=== PATIENT | male | born 1975 | race Caucasian/White ===

== ENCOUNTER 2018-10-11 14:17 | Inpatient (IN) | payer MEDICAID ==
[2018-10-11 15:16] LABS: ADD MAN DIFF? NO
[2018-10-11] MEDS: ONDANSETRON 4 MG INJ IV (15:16)
[2018-10-11] MEDS: HYDROmorphONE 1 MG/ML SYG IV (15:16)
[2018-10-11 15:35] LABS: ALANINE AMINOTRANSFERASE 47 IU/L (13-69); ALBUMIN/GLOBULIN RATIO 0.74; ALKALINE PHOSPHATASE 244 IU/L (42-121); ANION GAP 27 (5-13); ASPARTATE AMINO TRANSFERASE 69 IU/L (15-46); BILIRUBIN,INDIRECT 0.5 mg/dl (0-1.1); BILIRUBIN,TOTAL 0.5 mg/dl (0.2-1.3); BLOOD UREA NITROGEN 8 mg/dl (7-20); CALCIUM 6.7 mg/dl (8.4-10.2); CHLORIDE 94 mmol/L (97-110); CREATININE 0.84 mg/dl (0.61-1.24); Estimated GFR > 60 mL/min (>60); POTASSIUM 5.3 mmol/L (3.5-5.1); SODIUM 130 mmol/L (135-144); TOTAL PROTEIN 9.4 g/dl (6.1-8.1)
[2018-10-11 15:41] LABS: CARBON DIOXIDE 9 mmol/L (21-31); GLUCOSE 469 mg/dl (70-220)
[2018-10-11] MEDS ORDERED: DEXTROSE 10%/0.45% NACL 1,000 ML IV (15:43)
[2018-10-11] MEDS ORDERED: D10/0.45% NACL + KCL 40 MEQ 1,000 ML IV (15:43)
[2018-10-11] MEDS ORDERED: NS + KCL 40 MEQ 1,000 ML IV (15:43)
[2018-10-11 15:53] LABS: LIPASE 8556 U/L (23-300)
[2018-10-11] MEDS ORDERED: LACTATED RINGER'S 800 ML IV (16:00)
[2018-10-11] MEDS ORDERED: DEXTROSE 50% 50 ML SYRINGE IV ×2 (16:00)
[2018-10-11] MEDS ORDERED: INSULIN REGULAR, HUMAN 100 UNIT in SOD CHLORIDE 0.9% 100 ML IV (16:00)
[2018-10-11] MEDS: IOHEXOL 300MG/ML 150 ML BTL (16:05)
[2018-10-11] MEDS: SOD CHLORIDE 0.9% 100 ML (16:05)
[2018-10-11 16:19] LABS: ABNORMAL IP MESSAGE 1; BASOPHIL # 0.1 10^3/ul (0.0-0.1); BASOPHILS % 0.8 % (0.0-2.0); EOSINOPHILS % 0.1 % (0.0-7.0); HEMATOCRIT 62.8 % (42.0-52.0); HEMOGLOBIN 23.2 g/dl (14.0-18.0); LYMPHOCYTES # 0.4 10^3/ul (0.8-2.9); LYMPHOCYTES % 5.2 % (15.0-51.0); MEAN CORPUSCULAR HEMOGLOBIN 31.7 pg (29.0-33.0); MEAN CORPUSCULAR HGB CONC 36.9 g/dl (32.0-37.0); MEAN CORPUSCULAR VOLUME 85.7 fl (82.0-101.0); MONOCYTE # 0.5 10^3/ul (0.3-0.9); MONOCYTES % 5.7 % (0.0-11.0); NEUTROPHILS % 87.8 % (39.0-77.0); PLATELET COUNT 84 10^3/UL (140-415); POSITIVE DIFF @See below; RED BLOOD COUNT 7.33 10^6/ul (4.70-6.10); RED CELL DISTRIBUTION WIDTH 13.1 % (11.5-14.5)
[2018-10-11 16:19] LABS: WHITE BLOOD COUNT 7.9 10^3/ul (4.8-10.8)
[2018-10-11 16:23] LABS: MODE ROOM AIR; MetHgb Venous 0.2 %; PATH REVIEW? YES; Sample Type Blood venous; Site VENOUS LINE; Venous COHb 0.6 %; Venous Fraction OxyHgb 83.1 %; Venous Oxygen Sat 83.8 mmHG (55.0-75.0); Venous Total Hemglobin 15.7 g/dl
[2018-10-11] MEDS: SOD CHLORIDE 0.9% 1,000 ML IV (16:29)
[2018-10-11] MEDS: LACTATED RINGER'S 800 ML IV (16:30)
[2018-10-11] MEDS: INSULIN REGULAR, HUMAN 100 UNIT in SOD CHLORIDE 0.9% 100 ML IV (16:43)
[2018-10-11 16:53] LABS: MEAN PLATELET VOLUME 13.9 fl (7.4-10.4)
[2018-10-11 16:59] LABS: ADD UMIC YES; UR ASCORBIC ACID NEGATIVE (NEGATIVE); UR BILIRUBIN (Dip) NEGATIVE (NEGATIVE); UR BLOOD (Dip) 1+ mg/dL (NEGATIVE); UR CLARITY CLEAR (CLEAR); UR COLOR YELLOW (YELLOW); UR GLUCOSE (Dip) 3+ mg/dL (NEGATIVE); UR KETONES (Dip) 2+ mg/dL (NEGATIVE); UR LEUKOCYTE ESTERASE (Dip) NEGATIVE Leu/ul (NEGATIVE); UR NITRITE (Dip) NEGATIVE (NEGATIVE); UR RBC 3 /HPF (0-5); UR SPECIFIC GRAVITY (Dip) 1.033 (1.003-1.030); UR TOTAL PROTEIN (Dip) 2+ mg/dl (NEGATIVE); UR UROBILINOGEN (Dip) NEGATIVE (NEGATIVE); UR WBC 8 /HPF (0-5)
[2018-10-11 17:07] LABS: ANION GAP 25 (5-13); BLOOD UREA NITROGEN 8 mg/dl (7-20); CHLORIDE 96 mmol/L (97-110); CREATININE 0.86 mg/dl (0.61-1.24); Estimated GFR > 60 mL/min (>60); MAGNESIUM 1.3 mg/dl (1.7-2.5); PHOSPHORUS 3.8 mg/dl (2.5-4.9); POTASSIUM 4.7 mmol/L (3.5-5.1); SODIUM 128 mmol/L (135-144)
[2018-10-11 17:14] LABS: CARBON DIOXIDE 7 mmol/L (21-31); GLUCOSE 452 mg/dl (70-220)
[2018-10-11 17:19] LABS: CALCIUM 5.9 mg/dl (8.4-10.2)
[2018-10-11] MEDS: NS + KCL 30 MEQ 1,000 ML IV ×2 (17:53→21:53)
[2018-10-11 18:25] LABS: MODE NASAL CANNULA; MetHgb Venous 0.2 %; Sample Type Blood venous; Site VENOUS LINE; Venous COHb 0.4 %; Venous Fraction OxyHgb 84.3 %; Venous Oxygen Sat 84.8 mmHG (55.0-75.0); Venous Total Hemglobin 16.1 g/dl
[2018-10-11] MEDS: HYDROmorphONE 2 MG/ML SYG IV (18:31)
[2018-10-11 18:48] LABS: ANION GAP 22 (5-13); BLOOD UREA NITROGEN 8 mg/dl (7-20); CHLORIDE 102 mmol/L (97-110); Estimated GFR > 60 mL/min (>60); GLUCOSE 358 mg/dl (70-220); MAGNESIUM 1.3 mg/dl (1.7-2.5); PHOSPHORUS 2.7 mg/dl (2.5-4.9); POTASSIUM 4.8 mmol/L (3.5-5.1); SODIUM 131 mmol/L (135-144)
[2018-10-11 18:57] LABS: CALCIUM 5.9 mg/dl (8.4-10.2); CARBON DIOXIDE 7 mmol/L (21-31)
[2018-10-11 19:41] LABS: ADD MAN DIFF? NO
[2018-10-11] MEDS ORDERED: NACL 0.9% 3 ML SYG IV (20:00)
[2018-10-11] MEDS: morphine 2 MG INJ IV (20:46)
[2018-10-11 21:12] LABS: ABNORMAL IP MESSAGE 1; HEMATOCRIT 42.5 % (42.0-52.0); HEMOGLOBIN 15.6 g/dl (14.0-18.0); MEAN CORPUSCULAR HEMOGLOBIN 31.3 pg (29.0-33.0); MEAN CORPUSCULAR HGB CONC 36.7 g/dl (32.0-37.0); MEAN CORPUSCULAR VOLUME 85.3 fl (82.0-101.0); MONOCYTE # 0.5 10^3/ul (0.3-0.9); POSITIVE DIFF @See below; RED BLOOD COUNT 4.98 10^6/ul (4.70-6.10); RED CELL DISTRIBUTION WIDTH 12.5 % (11.5-14.5)
[2018-10-11 21:17] LABS: WHITE BLOOD COUNT 10.5 10^3/ul (4.8-10.8)
[2018-10-11 21:18] LABS: LYMPHOCYTES % 7.4 % (15.0-51.0); MONOCYTES % 4.9 % (0.0-11.0); NEUTROPHILS % 86.8 % (39.0-77.0); PLATELET COUNT 153 10^3/UL (140-415)
[2018-10-11 21:19] LABS: BASOPHILS % 0.4 % (0.0-2.0); LYMPHOCYTES # 0.8 10^3/ul (0.8-2.9); NEUTROPHIL # 9.1 10^3/ul (1.6-7.5)
[2018-10-11] MEDS ORDERED: MAGNESIUM SULFATE 2 GM/50 ML 50 ML (21:19)
[2018-10-11] MEDS: MAGNESIUM SULFATE 2 GM/50 ML 50 ML IVPB (21:34)
[2018-10-11] MEDS: HYDROmorphONE 0.5 MG/0.5 ML SYG IV (22:28)
[2018-10-11] MEDS: D10/0.45% NACL + KCL 30 MEQ 1,000 ML IV (22:40)
[2018-10-11 23:52] LABS: ABNORMAL IP MESSAGE 1; HEMATOCRIT 48.8 % (42.0-52.0); HEMOGLOBIN 18.1 g/dl (14.0-18.0); MEAN CORPUSCULAR HEMOGLOBIN 32.6 pg (29.0-33.0); MEAN CORPUSCULAR HGB CONC 37.1 g/dl (32.0-37.0); MEAN CORPUSCULAR VOLUME 87.9 fl (82.0-101.0); MEAN PLATELET VOLUME 13.8 fl (7.4-10.4); PLATELET COUNT 185 10^3/UL (140-415); POSITIVE DIFF @See below; RED BLOOD COUNT 5.55 10^6/ul (4.70-6.10); RED CELL DISTRIBUTION WIDTH 12.7 % (11.5-14.5)
[2018-10-11 23:52] LABS: WHITE BLOOD COUNT 7.4 10^3/ul (4.8-10.8)
[2018-10-12] LABS: ADD MAN DIFF? YES
[2018-10-12 00:15] LABS: ANION GAP 17 (5-13); BLOOD UREA NITROGEN 10 mg/dl (7-20); CHLORIDE 109 mmol/L (97-110); CREATININE 1.63 mg/dl (0.61-1.24); Estimated GFR 47 mL/min (>60); GLUCOSE 316 mg/dl (70-220); MAGNESIUM 1.9 mg/dl (1.7-2.5); PHOSPHORUS 1.5 mg/dl (2.5-4.9); POTASSIUM 4.8 mmol/L (3.5-5.1); SODIUM 135 mmol/L (135-144)
[2018-10-12 00:27] LABS: BAND NEUTROPHILS #M 2.4 10^3/ul (0.0-0.6); BAND NEUTROPHILS % (M) 33 % (0-4); GIANT THROMBO% (M) 5 % (0-0); LYMPHOCYTES #M 0.5 10^3/ul (0.8-2.9); LYMPHOCYTES % (M) 8 % (15-51); METAMYELOCYTES %M 1 % (0-0); MONOCYTE #M 0.5 10^3/ul (0.3-0.9); MONOCYTES % (M) 7 % (0-11); PLATELET ESTIMATE NORMAL; SEGMENTED NEUTROPHILS (M) % 51 % (39-77); SMUDGE%M 1 % (0-0)
[2018-10-12 00:36] LABS: CALCIUM 5.8 mg/dl (8.4-10.2); CARBON DIOXIDE 9 mmol/L (21-31)
[2018-10-12] MEDS: MAGNESIUM SULFATE 2 GM/50 ML 50 ML IVPB (00:40)
[2018-10-12] MEDS ORDERED: HYDROmorphONE 1 MG/ML SYG (00:59)
[2018-10-12] MEDS: HYDROmorphONE 1 MG/ML SYG IV ×4 (01:01→20:02)
[2018-10-12] MEDS: INSULIN REGULAR, HUMAN 100 UNIT in SOD CHLORIDE 0.9% 100 ML IV ×2 (01:17→08:17)
[2018-10-12 01:55] LABS: AADO2 Arterial 315.8 mmHg (7.0-24.0); Allen Test ACCEPTAB; Arterial Base Excess -11.4 mmol/L (-3.0-3); Arterial Blood Gas Oxygen Sat 95.6 mmHG (95.0-98.0); Arterial COHb 0.1 % (0.0-3.0); Arterial Fraction of Oxyhgb 95.1 % (93.0-99.0); Arterial HCO3 14.2 mmol/L (22.0-26.0); Arterial MetHb 0.4 % (0.0-1.5); Arterial pCO2 32.7 mmhg (35-45); MODE MASK - SIMPLE; Site Left Radial
[2018-10-12 02:22] LABS: LACTIC ACID 5.1 mmol/L (0.5-2.0)
[2018-10-12] MEDS ORDERED: NA BICARBONATE 8.4% 50 ML SYG IV (02:30)
[2018-10-12] MEDS ORDERED: VANCOMYCIN IV PER PHARMACY XX (02:30)
[2018-10-12] MEDS: FUROSEMIDE 40 MG INJ IV ×2 (02:30→02:33)
[2018-10-12 02:33] LABS: CREATINE KINASE 481 IU/L (23-200)
[2018-10-12] MEDS: MEROPENEM 1 GM/50ML(PMX) 50 ML IVPB ×3 (02:42→20:55)
[2018-10-12 02:46] LABS: CK INDEX 1.2; TROPONIN-I 0.049 ng/ml (0.000-0.120)
[2018-10-12] MEDS: NA BICARBONATE 8.4% 50 ML SYG IV (02:46)
[2018-10-12 02:48] LABS: CK-MB 5.97 ng/ml (0.0-2.4)
[2018-10-12] MEDS ORDERED: DEXTROSE 50% 50 ML SYRINGE IV ×2 (03:00→13:30)
[2018-10-12] MEDS: INSULIN HUMAN REGULAR 100 UNIT in SOD CHLORIDE 0.9% 99 ML IV ×2 (03:09→16:11)
[2018-10-12] MEDS: VANCOMYCIN HCL 2 GM in SOD CHLORIDE 0.9% 500 ML IVPB (03:21)
[2018-10-12] MEDS: ACCU-CHEK XX ×23 (03:23→23:00)
[2018-10-12] MEDS: CALCIUM GLUCONATE 10% 2 GM in DEXTROSE 5% 100 ML IVPB (03:40)
[2018-10-12 03:49] LABS: ANION GAP 18 (5-13); BLOOD UREA NITROGEN 11 mg/dl (7-20); CHLORIDE 107 mmol/L (97-110); CREATININE 2.53 mg/dl (0.61-1.24); Estimated GFR 28 mL/min (>60); GLUCOSE 311 mg/dl (70-220); MAGNESIUM 2.8 mg/dl (1.7-2.5); PHOSPHORUS 1.4 mg/dl (2.5-4.9); POTASSIUM 4.5 mmol/L (3.5-5.1); SODIUM 135 mmol/L (135-144)
[2018-10-12 03:57] LABS: CARBON DIOXIDE 10 mmol/L (21-31)
[2018-10-12 03:58] LABS: CALCIUM 5.9 mg/dl (8.4-10.2)
[2018-10-12] MEDS ORDERED: ACETAMINOPHEN 325 MG TAB PO (04:30)
[2018-10-12] MEDS: LIDOCAINE 1% (MPF) 5 ML VIAL SC (04:30)
[2018-10-12] MEDS: ACETAMINOPHEN 325 MG TAB PO (04:38)
[2018-10-12] MEDS: ALBUMIN HUMAN 25% 100 ML IV ×2 (04:53→09:12)
[2018-10-12 05:36] LABS: ADD UMIC YES; UR ASCORBIC ACID NEGATIVE (NEGATIVE); UR BILIRUBIN (Dip) NEGATIVE (NEGATIVE); UR BLOOD (Dip) 1+ mg/dL (NEGATIVE); UR CLARITY CLEAR (CLEAR); UR COLOR YELLOW (YELLOW); UR GLUCOSE (Dip) 3+ mg/dL (NEGATIVE); UR KETONES (Dip) 2+ mg/dL (NEGATIVE); UR LEUKOCYTE ESTERASE (Dip) NEGATIVE Leu/ul (NEGATIVE); UR NITRITE (Dip) NEGATIVE (NEGATIVE); UR RBC 1 /HPF (0-5); UR SPECIFIC GRAVITY (Dip) 1.042 (1.003-1.030); UR TOTAL PROTEIN (Dip) 2+ mg/dl (NEGATIVE); UR UROBILINOGEN (Dip) NEGATIVE (NEGATIVE); UR WBC 1 /HPF (0-5)
[2018-10-12] MEDS: SODIUM PHOSPHATE 20 MEQ in SOD CHLORIDE 0.9% 250 ML IVPB ×2 (05:38→23:44)
[2018-10-12 05:44] LABS: SODIUM,URINE RANDOM 34 mmol/L (30-90)
[2018-10-12] MEDS: MIDODRINE 2.5 MG TAB PO (05:52)
[2018-10-12] MEDS: HYDROmorphONE 0.5 MG/0.5 ML SYG IV ×4 (06:09→22:02)
[2018-10-12] MEDS ORDERED: DEXTROSE 10%/0.45% NACL 1,000 ML IV (06:49)
[2018-10-12] MEDS ORDERED: NS + KCL 40 MEQ 1,000 ML IV (06:49)
[2018-10-12] MEDS ORDERED: D10/0.45% NACL + KCL 40 MEQ 1,000 ML IV (06:49)
[2018-10-12] MEDS ORDERED: NS + KCL 30 MEQ 1,000 ML IV (06:54)
[2018-10-12] MEDS ORDERED: D10/0.45% NACL + KCL 30 MEQ 1,000 ML IV (06:54)
[2018-10-12] MEDS: NS + KCL 30 MEQ 1,000 ML IV (07:00)
[2018-10-12] MEDS: D10/0.45% NACL + KCL 30 MEQ 1,000 ML IV (07:01)
[2018-10-12] MEDS: SOD CHLORIDE 0.9% 1,000 ML IV ×3 (07:04→23:42)
[2018-10-12 07:35] LABS: CREATININE,URINE RANDOM 65.85 mg/dl (20-370)
[2018-10-12 07:35] LABS: SODIUM,URINE RANDOM 34 mmol/L (30-90)
[2018-10-12 08:58] LABS: CREATINE KINASE 825 IU/L (23-200)
[2018-10-12 08:59] LABS: ANION GAP 17 (5-13); BLOOD UREA NITROGEN 13 mg/dl (7-20); CALCIUM 6.9 mg/dl (8.4-10.2); CARBON DIOXIDE 14 mmol/L (21-31); CHLORIDE 107 mmol/L (97-110); CREATININE 3.47 mg/dl (0.61-1.24); Estimated GFR 20 mL/min (>60); GLUCOSE 222 mg/dl (70-220); MAGNESIUM 2.8 mg/dl (1.7-2.5); PHOSPHORUS 0.9 mg/dl (2.5-4.9); POTASSIUM 3.7 mmol/L (3.5-5.1); SODIUM 138 mmol/L (135-144)
[2018-10-12 09:07] LABS: PROCALCITONIN 33.51 ng/mL (0.00-0.10)
[2018-10-12 09:11] LABS: CK INDEX 1.4; TROPONIN-I 0.081 ng/ml (0.000-0.120)
[2018-10-12 09:18] LABS: C-REACTIVE PROTEIN 24.5 mg/dl (0.0-0.9)
[2018-10-12 09:25] LABS: LIPASE 7717 U/L (23-300)
[2018-10-12 09:50] LABS: ERYTHROCYTE SEDIMENTATION RATE 14 mm/Hr (0-15)
[2018-10-12] MEDS: SODIUM PHOSPHATE 15 MMOL in SOD CHLORIDE 0.9% 250 ML IVPB (12:28)
[2018-10-12] MEDS: NORepinephrine 32 MG in DEXTROSE 5% 218 ML IV (13:12)
[2018-10-12] MEDS: BUMETANIDE 1 MG INJ IV (13:18)
[2018-10-12 14:14] LABS: AADO2 Arterial 320.2 mmHg (7.0-24.0); Allen Test ACCEPTAB; Arterial Base Excess -13.8 mmol/L (-3.0-3); Arterial Blood Gas Oxygen Sat 92.3 mmHG (95.0-98.0); Arterial COHb 0.3 % (0.0-3.0); Arterial Fraction of Oxyhgb 91.8 % (93.0-99.0); Arterial HCO3 14.2 mmol/L (22.0-26.0); Arterial MetHb 0.2 % (0.0-1.5); MODE MASK - SIMPLE; Site Left Radial
[2018-10-12 14:41] LABS: LACTIC ACID 2.8 mmol/L (0.5-2.0)
[2018-10-12] MEDS: BUMETANIDE 25 MG in DEXTROSE 5% 150 ML IV (15:23)
[2018-10-12 16:15] LABS: CREATINE KINASE 2678 IU/L (23-200)
[2018-10-12 16:57] LABS: CK INDEX 1.5
[2018-10-12 17:07] LABS: TROPONIN-I 0.142 ng/ml (0.000-0.120)
[2018-10-12 18:18] LABS: ANION GAP 16 (5-13); BLOOD UREA NITROGEN 19 mg/dl (7-20); CALCIUM 6.6 mg/dl (8.4-10.2); CARBON DIOXIDE 14 mmol/L (21-31); CHLORIDE 111 mmol/L (97-110); CREATININE 4.74 mg/dl (0.61-1.24); Estimated GFR 14 mL/min (>60); GLUCOSE 220 mg/dl (70-220); MAGNESIUM 2.6 mg/dl (1.7-2.5); PHOSPHORUS 3.3 mg/dl (2.5-4.9); SODIUM 141 mmol/L (135-144)
[2018-10-12 18:19] LABS: POTASSIUM 5.6 mmol/L (3.5-5.1)
[2018-10-12 20:02] LABS: ANION GAP 15 (5-13); BLOOD UREA NITROGEN 19 mg/dl (7-20); CALCIUM 6.1 mg/dl (8.4-10.2); CHLORIDE 112 mmol/L (97-110); CREATININE 5.11 mg/dl (0.61-1.24); Estimated GFR 13 mL/min (>60); GLUCOSE 209 mg/dl (70-220); MAGNESIUM 2.3 mg/dl (1.7-2.5); PHOSPHORUS 3.7 mg/dl (2.5-4.9); POTASSIUM 5.1 mmol/L (3.5-5.1); SODIUM 137 mmol/L (135-144)
[2018-10-12 20:04] LABS: CARBON DIOXIDE 10 mmol/L (21-31)
[2018-10-12] MEDS: PHENYLephrine 20MG IN 250 ML 250 ML IV ×2 (20:37→22:48)
[2018-10-12 22:51] LABS: AADO2 Arterial 387.1 mmHg (7.0-24.0); Allen Test ACCEPTAB; Arterial Base Excess -15.5 mmol/L (-3.0-3); Arterial Blood Gas Oxygen Sat 94.5 mmHG (95.0-98.0); Arterial COHb 0.2 % (0.0-3.0); Arterial HCO3 11.2 mmol/L (22.0-26.0); Arterial MetHb 0.3 % (0.0-1.5); Arterial pCO2 29.8 mmhg (35-45); MODE MASK - SIMPLE; Site Left Radial
[2018-10-12] MEDS ORDERED: VASOPRESSIN 60 UNIT in DEXTROSE 5% 57 ML IV (23:00)
[2018-10-12] MEDS: PROPOFOL 100 ML IV (23:52)
[2018-10-13] MEDS: PHENYLephrine 80 MG in DEXTROSE 5% 242 ML IV ×5 (00:29→20:20)
[2018-10-13] MEDS: VASOPRESSIN 60 UNIT in DEXTROSE 5% 57 ML IV ×2 (00:38→11:36)
[2018-10-13] MEDS: ACETAMINOPHEN 1000MG/100ML IV 100 ML IVPB ×2 (00:47→07:00)
[2018-10-13 00:56] LABS: Allen Test ACCEPTAB; Arterial Base Excess -21.2 mmol/L (-3.0-3); Arterial Blood Gas Oxygen Sat 90.6 mmHG (95.0-98.0); Arterial COHb 0.2 % (0.0-3.0); Arterial Fraction of Oxyhgb 90.1 % (93.0-99.0); Arterial HCO3 11.1 mmol/L (22.0-26.0); Arterial MetHb 0.4 % (0.0-1.5); Arterial pCO2 51.8 mmhg (35-45); MODE VENT - AC; Site Left Radial
[2018-10-13] MEDS: ACCU-CHEK XX ×24 (01:00→22:49)
[2018-10-13] MEDS: MIDAZOLAM (DRIP) 50 mg/50 mL 50 ML IV ×3 (01:01→14:18)
[2018-10-13 01:15] LABS: ANION GAP 17 (5-13); BLOOD UREA NITROGEN 22 mg/dl (7-20); CALCIUM 6.1 mg/dl (8.4-10.2); CARBON DIOXIDE 11 mmol/L (21-31); CHLORIDE 111 mmol/L (97-110); CREATININE 6.15 mg/dl (0.61-1.24); Estimated GFR 10 mL/min (>60); GLUCOSE 174 mg/dl (70-220); MAGNESIUM 2.5 mg/dl (1.7-2.5); PHOSPHORUS 5.8 mg/dl (2.5-4.9); POTASSIUM 5.5 mmol/L (3.5-5.1); SODIUM 139 mmol/L (135-144)
[2018-10-13] MEDS: SODIUM BICARBONATE IN D5W 1,000 ML IV ×4 (01:40→21:01)
[2018-10-13] MEDS: NA BICARBONATE 8.4% 50 ML SYG IV ×6 (01:57→20:39)
[2018-10-13] MEDS ORDERED: VANCOMYCIN HCL 1.5 GM in SOD CHLORIDE 0.9% 250 ML IVPB (04:00)
[2018-10-13 05:18] LABS: AADO2 Arterial 599.1 mmHg (7.0-24.0); Allen Test ACCEPTAB; Arterial Base Excess -15.2 mmol/L (-3.0-3); Arterial Blood Gas Oxygen Sat 93.5 mmHG (95.0-98.0); Arterial COHb 0.3 % (0.0-3.0); Arterial HCO3 13.3 mmol/L (22.0-26.0); Arterial MetHb 0.2 % (0.0-1.5); Arterial pCO2 40.6 mmhg (35-45); MODE VENT - AC; Site Left Radial
[2018-10-13 05:37] LABS: HAAIG REFLEX REFLEX FILED
[2018-10-13 05:41] LABS: ABNORMAL IP MESSAGE 1; HEMATOCRIT 43.9 % (42.0-52.0); MEAN CORPUSCULAR HEMOGLOBIN 30.8 pg (29.0-33.0); MEAN CORPUSCULAR HGB CONC 31.9 g/dl (32.0-37.0); MEAN CORPUSCULAR VOLUME 96.7 fl (82.0-101.0); PLATELET COUNT 113 10^3/UL (140-415); POSITIVE DIFF @See below; RED BLOOD COUNT 4.54 10^6/ul (4.70-6.10); RED CELL DISTRIBUTION WIDTH 14.7 % (11.5-14.5)
[2018-10-13 05:41] LABS: WHITE BLOOD COUNT 7.9 10^3/ul (4.8-10.8)
[2018-10-13 05:47] LABS: ADD MAN DIFF? YES
[2018-10-13 06:10] LABS: LACTIC ACID 6.8 mmol/L (0.5-2.0)
[2018-10-13 06:50] LABS: ALBUMIN/GLOBULIN RATIO 0.96; ALKALINE PHOSPHATASE 157 IU/L (42-121); ANION GAP 18 (5-13); BILIRUBIN,INDIRECT 0.4 mg/dl (0-1.1); BILIRUBIN,TOTAL 0.4 mg/dl (0.2-1.3); BLOOD UREA NITROGEN 23 mg/dl (7-20); CARBON DIOXIDE 12 mmol/L (21-31); CHLORIDE 109 mmol/L (97-110); CREATININE 7.03 mg/dl (0.61-1.24); Estimated GFR 9 mL/min (>60); GLUCOSE 121 mg/dl (70-220); POTASSIUM 4.8 mmol/L (3.5-5.1); SODIUM 139 mmol/L (135-144); TOTAL PROTEIN 6.1 g/dl (6.1-8.1)
[2018-10-13 06:52] LABS: CALCIUM 5.8 mg/dl (8.4-10.2)
[2018-10-13] MEDS ORDERED: EPINEPHrine 0.1 MG/ML SYG (07:00)
[2018-10-13 07:21] LABS: HEPATITIS B CORE ANTIBODY NEGATIVE (NEGATIVE)
[2018-10-13 08:05] LABS: TOXIC GRANULATION 1+ (0-0)
[2018-10-13 08:06] LABS: BAND NEUTROPHILS #M 2.9 10^3/ul (0.0-0.6); BAND NEUTROPHILS % (M) 37 % (0-4); BASOPHILS % (M) 1 % (0-2); ERYTHROBLAST% (NRBC) (M) 1 % (0-0); GIANT THROMBO% (M) 14 % (0-0); LYMPHOCYTES #M 2.2 10^3/ul (0.8-2.9); LYMPHOCYTES % (M) 29 % (15-51); METAMYELOCYTES #M 0.8 10^3/ul (0.0-0.0); METAMYELOCYTES %M 11 % (0-0); MONOCYTE #M 0.3 10^3/ul (0.3-0.9); MONOCYTES % (M) 4 % (0-11); MYELOCYTES #M 0.1 10^3/ul (0.0-0.0); MYELOCYTES % (M) 2 % (0-0); PLATELET ESTIMATE DECREASED; PROMYELOCYTES % (M) 1 % (0-0); SEG NEUT #M 1.4 10^3/ul (1.6-7.5); SEGMENTED NEUTROPHILS (M) % 15 % (39-77); SMUDGE%M 8 % (0-0); TOXIC VACUOLATION 1+ (0-0)
[2018-10-13 08:42] LABS: HEPATITIS C VIRAL ANTIBODY NEGATIVE (NEGATIVE); HIV 1&2 ANTIBODY NEGATIVE (NEGATIVE)
[2018-10-13] MEDS ORDERED: CA CHLORIDE 10% 10 ML SYRINGE (09:56)
[2018-10-13] MEDS: CA CHLORIDE 10% 10 ML SYRINGE IV ×2 (09:58→12:40)
[2018-10-13] MEDS: PROPOFOL 100 ML IV ×2 (11:30→22:50)
[2018-10-13] MEDS: FENTAnyl (DRIP) 1000 mcg/100mL 100 ML IV (11:31)
[2018-10-13 11:49] LABS: WHITE BLOOD COUNT 8.1 10^3/ul (4.8-10.8)
[2018-10-13 11:49] LABS: ABNORMAL IP MESSAGE 1; HEMATOCRIT 31.7 % (42.0-52.0); HEMOGLOBIN 10.3 g/dl (14.0-18.0); MEAN CORPUSCULAR HEMOGLOBIN 30.8 pg (29.0-33.0); MEAN CORPUSCULAR HGB CONC 32.5 g/dl (32.0-37.0); MEAN CORPUSCULAR VOLUME 94.9 fl (82.0-101.0); NUCLEATED RED BLOOD CELLS% 1.7 /100WBC (0.0-0.0); PLATELET COUNT 77 10^3/UL (140-415); POSITIVE DIFF @See below; RED BLOOD COUNT 3.34 10^6/ul (4.70-6.10); RED CELL DISTRIBUTION WIDTH 15.2 % (11.5-14.5)
[2018-10-13] MEDS: MEROPENEM 1 GM/50ML(PMX) 50 ML IVPB (11:51)
[2018-10-13 11:57] LABS: PLATELET COUNT 67 10^3/UL (140-415)
[2018-10-13 11:58] LABS: ADD MAN DIFF? YES
[2018-10-13 12:02] LABS: ANION GAP 13 (5-13); BLOOD UREA NITROGEN 21 mg/dl (7-20); CARBON DIOXIDE 36 mmol/L (21-31); CHLORIDE 80 mmol/L (97-110); CREATININE 4.95 mg/dl (0.61-1.24); Estimated GFR 13 mL/min (>60); MAGNESIUM 1.6 mg/dl (1.7-2.5); PHOSPHORUS 7.8 mg/dl (2.5-4.9); POTASSIUM 4.2 mmol/L (3.5-5.1); SODIUM 129 mmol/L (135-144)
[2018-10-13 12:10] LABS: AADO2 Arterial 615.2 mmHg (7.0-24.0); Arterial Base Excess -17.9 mmol/L (-3.0-3); Arterial Blood Gas Oxygen Sat 87.1 mmHG (95.0-98.0); Arterial COHb 0.3 % (0.0-3.0); Arterial Fraction of Oxyhgb 86.6 % (93.0-99.0); Arterial HCO3 10.8 mmol/L (22.0-26.0); Arterial MetHb 0.3 % (0.0-1.5); Arterial pCO2 35.5 mmhg (35-45); MODE VENT - AC; Site A-Line
[2018-10-13 12:18] LABS: GLUCOSE 1163 mg/dl (70-220)
[2018-10-13 12:19] LABS: CALCIUM 4.4 mg/dl (8.4-10.2)
[2018-10-13 12:22] LABS: LACTIC ACID 8.6 mmol/L (0.5-2.0)
[2018-10-13 12:24] LABS: INR 2.25; PROTIME 24.9 Sec (11.9-14.9); PT RATIO 1.9
[2018-10-13 12:25] LABS: PARTIAL THROMBOPLASTIN TIME 52.4 Sec (23.0-35.0); THROMBIN TIME 20.7 SEC (13.8-19.1)
[2018-10-13] MEDS ORDERED: NORepinephrine 8MG/250 ML (PMX 250 ML (12:27)
[2018-10-13 12:34] LABS: HEPATITIS B SURFACE ANTIBODY POSITIVE (NEGATIVE)
[2018-10-13] MEDS: LACTATED RINGER'S 1,000 ML IV (12:38)
[2018-10-13 12:50] LABS: BAND NEUTROPHILS #M 2.5 10^3/ul (0.0-0.6); BAND NEUTROPHILS % (M) 32 % (0-4); BASOPHILS % (M) 1 % (0-2); EOSINOPHILS % (M) 1 % (0-7); ERYTHROBLAST% (NRBC) (M) 1 % (0-0); GIANT THROMBO% (M) 3 % (0-0); LYMPHOCYTES #M 1.7 10^3/ul (0.8-2.9); LYMPHOCYTES % (M) 21 % (15-51); METAMYELOCYTES #M 0.6 10^3/ul (0.0-0.0); METAMYELOCYTES %M 8 % (0-0); MONOCYTE #M 0.4 10^3/ul (0.3-0.9); MONOCYTES % (M) 5 % (0-11); MYELOCYTES #M 0.3 10^3/ul (0.0-0.0); MYELOCYTES % (M) 4 % (0-0); PLATELET ESTIMATE DECREASED; SEG NEUT #M 2.5 10^3/ul (1.6-7.5); SEGMENTED NEUTROPHILS (M) % 28 % (39-77); SMUDGE%M 22 % (0-0)
[2018-10-13] MEDS: BUMETANIDE 25 MG in DEXTROSE 5% 150 ML IV (13:08)
[2018-10-13 13:09] LABS: D-DIMER > 10000.00 ng/ml (<460)
[2018-10-13] MEDS: DEXTROSE 50% 50 ML SYRINGE IV ×2 (13:29→18:25)
[2018-10-13 13:42] LABS: HEPATITIS B SURFACE ANTIGEN NEGATIVE (NEGATIVE)
[2018-10-13 14:09] LABS: AADO2 Arterial 614.8 mmHg (7.0-24.0); Arterial Base Excess -18.7 mmol/L (-3.0-3); Arterial Blood Gas Oxygen Sat 81.2 mmHG (95.0-98.0); Arterial COHb 0.3 % (0.0-3.0); Arterial Fraction of Oxyhgb 80.9 % (93.0-99.0); Arterial HCO3 11.3 mmol/L (22.0-26.0); Arterial MetHb 0.1 % (0.0-1.5); Arterial pCO2 42.5 mmhg (35-45); MODE VENT - AC; Site A-Line
[2018-10-13] MEDS ORDERED: NA BICARBONATE 8.4% 50 ML SYG IV (14:20)
[2018-10-13 14:39] LABS: ADD MAN DIFF? NO
[2018-10-13 14:45] LABS: WHITE BLOOD COUNT 8.4 10^3/ul (4.8-10.8)
[2018-10-13 14:45] LABS: ABNORMAL IP MESSAGE 1; BASOPHILS % 0.5 % (0.0-2.0); EOSINOPHILS % 0.4 % (0.0-7.0); HEMOGLOBIN 11.4 g/dl (14.0-18.0); LYMPHOCYTES # 1.7 10^3/ul (0.8-2.9); LYMPHOCYTES % 20.6 % (15.0-51.0); MEAN CORPUSCULAR HEMOGLOBIN 30.8 pg (29.0-33.0); MEAN CORPUSCULAR HGB CONC 31.7 g/dl (32.0-37.0); MEAN CORPUSCULAR VOLUME 97.3 fl (82.0-101.0); MONOCYTE # 0.4 10^3/ul (0.3-0.9); MONOCYTES % 4.6 % (0.0-11.0); NEUTROPHIL # 5.8 10^3/ul (1.6-7.5); NEUTROPHILS % 69.2 % (39.0-77.0); NUCLEATED RED BLOOD CELLS # 0.2 10^3/ul (0.0-0.0); NUCLEATED RED BLOOD CELLS% 2.7 /100WBC (0.0-0.0); PLATELET COUNT 78 10^3/UL (140-415); POSITIVE DIFF @See below; RED CELL DISTRIBUTION WIDTH 15.1 % (11.5-14.5)
[2018-10-13 14:59] LABS: MAGNESIUM 2.3 mg/dl (1.7-2.5)
[2018-10-13 15:04] LABS: CREATININE, RANDOM URINE 61 mg/dL (20-320); MICROALBUMIN 24.4 mg/dL; MICROALBUMIN/CREATININE RATIO 400 (<30)
[2018-10-13 15:09] LABS: LACTIC ACID 17.6 mmol/L (0.5-2.0)
[2018-10-13 15:10] LABS: PHOSPHORUS 13.1 mg/dl (2.5-4.9)
[2018-10-13 15:22] LABS: ANION GAP 25 (5-13); BLOOD UREA NITROGEN 25 mg/dl (7-20); CALCIUM 6.4 mg/dl (8.4-10.2); CARBON DIOXIDE 14 mmol/L (21-31); CHLORIDE 101 mmol/L (97-110); CREATININE 7.91 mg/dl (0.61-1.24); Estimated GFR 8 mL/min (>60); GLUCOSE 118 mg/dl (70-220); SODIUM 140 mmol/L (135-144)
[2018-10-13] MEDS: ALBUMIN HUMAN 25% 100 ML IV (15:52)
[2018-10-13 15:53] LABS: POTASSIUM 6.4 mmol/L (3.5-5.1)
[2018-10-13] MEDS: HEPARIN 1000 UNITS/ML 10 ML INJ CATHETER (17:32)
[2018-10-13 18:07] LABS: Arterial Base Excess -17.4 mmol/L (-3.0-3); Arterial pCO2 48.1 mmhg (35-45); MODE VENT - AC; Site A-Line
[2018-10-13] MEDS: DEXTROSE 10% 1,000 ML IV (18:26)
[2018-10-13] MEDS: NORepinephrine 8MG/250 ML (PMX 250 ML IV (18:43)
[2018-10-13 19:10] LABS: ANION GAP 30 (5-13); BLOOD UREA NITROGEN 18 mg/dl (7-20); CALCIUM 6.4 mg/dl (8.4-10.2); CARBON DIOXIDE 15 mmol/L (21-31); CHLORIDE 96 mmol/L (97-110); CREATININE 6.43 mg/dl (0.61-1.24); Estimated GFR 10 mL/min (>60); GLUCOSE 171 mg/dl (70-220); MAGNESIUM 2.3 mg/dl (1.7-2.5); POTASSIUM 4.9 mmol/L (3.5-5.1); SODIUM 141 mmol/L (135-144)
[2018-10-13 19:25] LABS: PHOSPHORUS 13.2 mg/dl (2.5-4.9)
[2018-10-13 19:28] LABS: LACTIC ACID > 24.0 mmol/L (0.5-2.0)
[2018-10-13] MEDS ORDERED: DOPamine-D5W 1.6 MG/ML 250 ML (20:09)
[2018-10-13 20:30] LABS: AADO2 Arterial 609.7 mmHg (7.0-24.0); Arterial Base Excess -22.2 mmol/L (-3.0-3); Arterial Blood Gas Oxygen Sat 74.5 mmHG (95.0-98.0); Arterial COHb 0.3 % (0.0-3.0); Arterial Fraction of Oxyhgb 73.9 % (93.0-99.0); Arterial HCO3 9.9 mmol/L (22.0-26.0); Arterial MetHb 0.5 % (0.0-1.5); Arterial pCO2 49.4 mmhg (35-45); MODE VENT - AC; Site A-Line
[2018-10-13] MEDS: DOPamine-D5W 1.6 MG/ML 250 ML IV ×2 (20:35→23:00)
[2018-10-13] MEDS: EPINEPHrine 4 MG in DEXTROSE 5% 246 ML IV (21:09)
[2018-10-13] MEDS: NORepinephrine 32 MG in DEXTROSE 5% 218 ML IV (23:13)
[2018-10-13 23:29] LABS: AADO2 Arterial 623.3 mmHg (7.0-24.0); Arterial Base Excess -28.5 mmol/L (-3.0-3); Arterial Blood Gas Oxygen Sat 55.1 mmHG (95.0-98.0); Arterial COHb 0.3 % (0.0-3.0); Arterial Fraction of Oxyhgb 54.7 % (93.0-99.0); Arterial HCO3 6.2 mmol/L (22.0-26.0); Arterial MetHb 0.5 % (0.0-1.5); Arterial pCO2 46.2 mmhg (35-45); MODE VENT - AC; Site A-Line
[2018-10-13] MEDS ORDERED: DOPamine 800 MG in DEXTROSE 5% 230 ML IV (23:30)
[2018-10-14] MEDS ORDERED: MEROPENEM 500MG/50 ML (PMX) 50 ML IVPB (09:00)
== END 2018-10-13 23:30 | disposition expired | DRG 438 ==
LOC: E/R 14:17 → ICU 17:11
PROC: 06HN33Z Insertion of Infusion Device into Left Femoral Vein, Percutaneous Approach (ICD-10-PCS; principal; 2018-10-11)
PROC: 0BH17EZ Insertion of Endotracheal Airway into Trachea, Via Natural or Artificial Opening (ICD-10-PCS; 2018-10-12)
PROC: 5A1945Z Respiratory Ventilation, 24-96 Consecutive Hours (ICD-10-PCS; 2018-10-12)
PROC: 02HV33Z Insertion of Infusion Device into Superior Vena Cava, Percutaneous Approach (ICD-10-PCS; 2018-10-12)
PROC: 04HY32Z Insertion of Monitoring Device into Lower Artery, Percutaneous Approach (ICD-10-PCS; 2018-10-13)
PROC: 5A12012 Performance of Cardiac Output, Single, Manual (ICD-10-PCS; 2018-10-13)
PROC: 5A1D70Z Performance of Urinary Filtration, Intermittent, Less than 6 Hours Per Day (ICD-10-PCS; 2018-10-13)
DX: K85.90 Acute pancreatitis without necrosis or infection, unspecified (principal); E11.10 Type 2 diabetes mellitus with ketoacidosis without coma; J96.01 Acute respiratory failure with hypoxia; R57.9 Shock, unspecified; E87.2 Acidosis; Z68.41 Body mass index [BMI] 40.0-44.9, adult; E87.1 Hypo-osmolality and hyponatremia; E87.4 Mixed disorder of acid-base balance; R65.10 Systemic inflammatory response syndrome (SIRS) of non-infectious origin without acute organ dysfunction; N17.9 Acute kidney failure, unspecified; E66.01 Morbid (severe) obesity due to excess calories; D69.6 Thrombocytopenia, unspecified; D75.1 Secondary polycythemia; E83.42 Hypomagnesemia; T17.998A Other foreign object in respiratory tract, part unspecified causing other injury, initial encounter; X58.XXXA Exposure to other specified factors, initial encounter
CPT/HCPCS: 31500; 36415; 36569; 36600; 71045; 74018; 74177; 76775; 76937; 80048; 80053; 81001; 81003; 82043; 82550; 82553; 82803; 82962; 83036; 83605; 83690; 83735; 84100; 84145; 84155; 84300; 84484; 85025; 85049; 85362; 85378; 85384; 85610; 85651; 85670; 85730; 86140; 86703; 86704; 86706; 86709; 86803; 87040-91; 87081; 87086; 87340; 87536; 89190; 90935; 92950; 93005; 93306; 94002; 94003; 94660; 94770; 96374; 96375; 99285-25